=== PATIENT | female | born 1970 | race Caucasian/White ===

== ENCOUNTER 2019-10-24 14:33 | Outpatient (CLI) | payer OTHER, SELFPAY | END 2019-10-24 14:34 | disposition home or self-care (01) | LOC: LAB 14:36 | PROVIDERS: Family Provider Family Medicine; PCP Family Medicine; Visit Provider Otolaryngology | DX: E04.1 Nontoxic single thyroid nodule (principal) | CPT/HCPCS: 36415; 84443 ==

== ENCOUNTER → 2019-10-27 10:32 | Outpatient (BNVA) | payer OTHER, SELFPAY | PROVIDERS: Family Provider Family Medicine; PCP Family Medicine; Referring Provider Family Medicine; Visit Provider Otolaryngology | DX: R53.83 Other fatigue (principal); E03.9 Hypothyroidism, unspecified | CPT/HCPCS: 99024; 99214 ==

== ENCOUNTER 2019-12-05 07:45 | Outpatient (CLI) | payer OTHER, SELFPAY ==
[2019-12-05 08:24] LABS: Thyroid Stimulating Hormone 1.85 uIU/mL (0.27-4.20)
== END 2019-12-05 07:46 | disposition home or self-care (01) ==
LOC: LAB 07:48
PROVIDERS: Family Provider Family Medicine; PCP Family Medicine; Visit Provider Otolaryngology
DX: E03.9 Hypothyroidism, unspecified (principal)
CPT/HCPCS: 36415; 84443

== ENCOUNTER 2019-12-08 10:43 | Outpatient (CLI) | payer OTHER, SELFPAY ==
--- NOTE | 2019-12-08 10:50 | MM_ITS ---
WS: [id number] SCREENING DIGITAL MAMMOGRAM WITH CAD HISTORY: SCREENING COMPARISON: 10/26/2018, 12/09/2017 and 12/11/2016 Bilateral CC and MLO views submitted. Computer aided detection analyzed. Breast composition: The breasts are heterogeneously dense, which may obscure small masses. No suspici ous masses, microcalcifications or architectural distortion. MM/[id number] IMPRESSION: BI-RADS: 1-Negative FOLLOW UP: 1 Year Follow-up
== END 2019-12-08 10:44 | disposition home or self-care (01) ==
LOC: RADSHAW 10:43
PROVIDERS: Family Provider Family Medicine; PCP Family Medicine; Visit Provider Family Medicine
DX: Z12.31 Encounter for screening mammogram for malignant neoplasm of breast (principal); E04.1 Nontoxic single thyroid nodule; E03.9 Hypothyroidism, unspecified
CPT/HCPCS: 77067; 99212; 99214

== ENCOUNTER 2020-01-23 06:00 | Outpatient (CLI) | payer OTHER, SELFPAY ==
[2020-01-23 08:04] LABS: Thyroid Stimulating Hormone 1.45 uIU/mL (0.27-4.20)
== END 2020-01-23 06:01 | disposition home or self-care (01) ==
PROVIDERS: Family Provider Family Medicine; PCP Family Medicine; Visit Provider Otolaryngology
DX: E03.9 Hypothyroidism, unspecified (principal)
CPT/HCPCS: 36415; 84443

== ENCOUNTER 2020-02-16 10:17 | Outpatient (CLI) | payer OTHER, SELFPAY ==
--- NOTE | 2020-02-16 10:21 | XR_ITS ---
WS: [id number] LEFT HAND: 2 VIEW(S) TECHNIQUE: PA and lateral. HISTORY: Arthritis. COMPARISON: None available. No acute fracture or dislocation. Very minimal narrowing of the interphalangeal joints. No soft tissue abnormalities. No periarticular osteopenia. XR/XR hand LT 2V [id number] IMPRESSION: Minimal osteoarthritic changes at the interphalangeal joints.
--- NOTE | 2020-02-16 10:21 | XR_ITS ---
WS: [id number] RIGHT HIP HISTORY: Arthritis COMPARISON: None available. Right hip: No acute fracture or dislocation. Very mild sclerosis along the superior acetabulum and sm all osteophytes developing. No osteoblastic or osteolytic disease. Mild sclerosis RIGHT SI joint. No erosions or fusion. XR/XR hip RT 2-3V wo/w pel* [id number] IMPRESSION: 1. Mild RIGHT hip osteoarthritis. 2. Very mild RIGHT sacroiliitis.
--- NOTE | 2020-02-16 10:21 | XR_ITS ---
WS: [id number] RIGHT HAND: 2 VIEW(S) TECHNIQUE: PA and lateral. HISTORY: Arthritis. COMPARISON: None available. No acute fracture or dislocation. Very mild narrowing of the interphalangeal joint spaces. No periarticular osteopenia or erosions. Lyn y slight narrowing of the radiocarpal joint. Minimal narrowing of the first carpometacarpal joint. XR/XR hand RT 2V [id number] IMPRESSION: 1. Hypertrophic osteophytes most significant at the DIP joint seen on the late ral projection. Consistent with osteoarthritis. 2. Mild narrowing of the radiocarpal joint.
== END 2020-02-16 10:18 | disposition home or self-care (01) ==
LOC: RADWPI 10:19
PROVIDERS: Family Provider Family Medicine; PCP Family Medicine; Visit Provider Family Medicine
DX: M19.90 Unspecified osteoarthritis, unspecified site (principal); M16.11 Unilateral primary osteoarthritis, right hip; M46.1 Sacroiliitis, not elsewhere classified; M25.741 Osteophyte, right hand; M19.041 Primary osteoarthritis, right hand
CPT/HCPCS: 73120; 73502

== ENCOUNTER → 2020-04-30 11:40 | Outpatient (BNVA) | payer OTHER, SELFPAY | PROVIDERS: Family Provider Family Medicine; PCP Family Medicine; Visit Provider Internal Medicine Rheumatology | DX: R76.8 Other specified abnormal immunological findings in serum (principal); Z79.899 Other long term (current) drug therapy; M19.041 Primary osteoarthritis, right hand; M19.042 Primary osteoarthritis, left hand; M25.469 Effusion, unspecified knee; M79.7 Fibromyalgia; Z79.1 Long term (current) use of non-steroidal anti-inflammatories (NSAID) | CPT/HCPCS: 36415; 99214 ==

== ENCOUNTER 2020-04-30 13:48 | Outpatient (CLI) | payer OTHER, SELFPAY ==
--- NOTE | 2020-04-30 13:55 | XR_ITS ---
WS: [id number] THORACIC SPINE TECHNIQUE: 3 views of the thoracic spine CLINICAL INFORMATION: joint pain COMPARISON: None. FINDINGS: Mild thoracic curve convex left. No acute compression fractures. Disc space heights and vertebral bod y heights are well-maintained. Minimal disc space narrowing in the mid thoracic spine. Mild facet art hropathy in the lower thoracic spine. XR/XR thoracic spine 3V* [id number] IMPRESSION: 1. Mild thoracic curve convex left. No acute appearing compression fractures. 2. Minimal disc space narrowing in the mid thoracic spine. 3. No other significant findings.
--- NOTE | 2020-04-30 13:55 | XR_ITS ---
WS: [id number] LUMBAR SPINE TECHNIQUE: 3 views of the lumbar spine CLINICAL INFORMATION: joint pain COMPARISON: July 09, 2011 FINDINGS: Five [id number]-[id number] lumbar vertebral bodies. Mild lumbar curve convex right. Pelvic phleboliths. Dis c space narrowing worse at L4-5 slightly progressed since 2010. Moderate facet arthropathy L4-L5 and L5-S1. Disc space heights are otherwise well preserved. No compression fractures. No spondylolisthesis. Visu alized sacroiliac joints are normal. Normal visualized soft tissues. Partially visualized bowel gas p attern is normal. XR/XR lumbar spine 2-3V* [id number] IMPRESSION: 1. Mild lumbar curve convex right. No acute compression fractures. 2. Disc space narrowing worse L4-5 progressed since 2010. 3. Moderate facet arthropathy L4-L5 and L5-S1.
--- NOTE | 2020-04-30 13:55 | XR_ITS ---
WS: [id number] PELVIS TECHNIQUE: 1 view(s) of the pelvis CLINICAL INFORMATION: joint pain COMPARISON: Right hip February 16, 2020 FINDINGS: Visualized hips are normal in appearance. Normal acetabulum. Lower lumbar spine is normal. Inferior a nd superior pubic rami are normal. Normal iliopectineal line. Sacrum is normal in appearance. Sacroil iac joints appear normal today. No periarticular erosions. Pelvic phleboliths. XR/XR pelvis 1-2V* [id number] IMPRESSION: No acute pelvic findings
== END 2020-04-30 13:49 | disposition home or self-care (01) ==
LOC: RADWPI 13:50
PROVIDERS: Family Provider Family Medicine; PCP Family Medicine; Visit Provider Internal Medicine Rheumatology
DX: M25.50 Pain in unspecified joint (principal); M47.814 Spondylosis without myelopathy or radiculopathy, thoracic region; M47.816 Spondylosis without myelopathy or radiculopathy, lumbar region; M47.817 Spondylosis without myelopathy or radiculopathy, lumbosacral region
CPT/HCPCS: 72072; 72100; 72170; 80076; 81001; 82306; 82565; 85025; 85651; 86140

== ENCOUNTER → 2020-06-21 10:38 | Outpatient (BNVA) | payer OTHER, SELFPAY | PROVIDERS: Family Provider Family Medicine; PCP Family Medicine; Visit Provider Internal Medicine Rheumatology | DX: M79.7 Fibromyalgia (principal); R76.8 Other specified abnormal immunological findings in serum; Z79.899 Other long term (current) drug therapy; M54.5 Low back pain; G89.29 Other chronic pain; M19.071 Primary osteoarthritis, right ankle and foot; M19.072 Primary osteoarthritis, left ankle and foot; M18.0 Bilateral primary osteoarthritis of first carpometacarpal joints | CPT/HCPCS: 99214 ==

== ENCOUNTER 2020-07-10 10:05 | Outpatient (CLI) | payer OTHER, SELFPAY ==
--- NOTE | 2020-07-10 10:10 | MR_ITS ---
WS: [id number] MRI pelvis, noncontrast. HISTORY: Rule out sacroiliitis. Pain in lumbar and sacral area on the RIGHT. COMPARISON: CT 06/07/2014. Pelvis radiograph 04/30/2020. Multiplanar, multisequence imaging is performed of the SI joints. There is a focal erosion in the iliac side of the RIGHT SI joint measuring 7 mm. No increased signal associated with this erosion. Suggesting nonactive erosion. There is a very subtle area of approximat rojelio 4 mm of increased STIR signal in the sacral side of the SI joint. This is best seen on the rockwell l STIR sequence. There is also very minimal widening of the RIGHT SI joint as compared to the LEFT. N o definite erosions on the LEFT. There is no significant amount of marrow edema along the iliac side. No soft tissue abnormalities otherwise. Small follicle RIGHT ovary. Hip joints are normal. Mild degenerative disc disease and spondylosis at C4-5. MR/MR pelvis wo con* [id number] IMPRESSION: 1. An active 7 mm erosion RIGHT SI joint joint, iliac side. 2. Subtle marrow edema measuring 4 mm sacral side of the RIGHT SI joint suggest ing an early active erosion. 3. Very subtle widening of the RIGHT SI joint as compared to the LEFT. 4. These findings can be seen with early sacroiliitis associated with psoriatic or osteoarthritis.
== END 2020-07-10 10:06 | disposition home or self-care (01) ==
LOC: RADSHAW 10:07
PROVIDERS: PCP Family Medicine; Visit Provider Internal Medicine Rheumatology
DX: M46.1 Sacroiliitis, not elsewhere classified (principal); M54.5 Low back pain; M85.88 Other specified disorders of bone density and structure, other site; R60.0 Localized edema
CPT/HCPCS: 72195

== ENCOUNTER 2020-08-27 08:04 | Outpatient (CLI) | payer OTHER, SELFPAY ==
[2020-08-28 06:59] LABS: Thyroid Stimulating Hormone 0.93 uIU/mL (0.27-4.20)
== END 2020-08-27 08:05 | disposition home or self-care (01) ==
LOC: LAB 08:06
PROVIDERS: PCP Family Medicine; Visit Provider Family Medicine
DX: E04.1 Nontoxic single thyroid nodule (principal)
CPT/HCPCS: 84443

== ENCOUNTER 2020-08-27 08:07 | Outpatient (CLI) | payer OTHER, SELFPAY ==
[2020-08-27 08:51] LABS: Bacteria Urine TRACE /hpf; Bilirubin Urine 1+ (Negative); Blood Urine 2+ (Negative); Glucose Urine UA Norm (Normal); Ketones Urine Negative (Negative); Leukocyte Esterase Urine Negative (Negative); Mucus Urine 2+ /hpf; Nitrate Urine Negative (Negative); Protein Urine Neg (Negative); RBC Urine 0-4 /hpf (0-2); Squamous Epithelial Cell Urine 0-4 /hpf (0-5); Urine Appearance Clear (CLEAR); Urine Color Yellow (Yellow); Urobilinogen Urine Norm (Negative); WBC Urine RARE /hpf (0-5); pH Urine 5 (5-7)
[2020-08-27 08:52] LABS: Add Urine Culture? No
[2020-08-27 09:01] LABS: Urine Creatinine 224 mg/dL (28-217); Urine Protein Random 7 mg/dL
[2020-08-27 09:24] LABS: Basophils % 0.6 %; Eosinophils # 0.1 10^3/uL (0.0-0.8); Eosinophils % 1.6 %; Hematocrit 42.3 % (37.0-47.0); Hemoglobin 13.6 g/dL (11.5-15.3); Lymphocytes # 1.3 10^3/uL (0.8-4.8); Lymphocytes % 20.5 %; Mean Corpuscular HGB Conc 32.2 g/dL (30.0-36.0); Mean Corpuscular Hemoglobin 30.8 pg (28.0-34.0); Mean Corpuscular Volume 95.9 fL (81-99); Mean Platelet Volume 11.6 fL (7.4-10.4); Monocytes # 0.5 10^3/uL (0.2-0.9); Monocytes % 7.2 %; Neutrophils # 4.47 10^3/uL (1.8-7.7); Neutrophils % 69.8 %; Nucleated Red Blood Cells % 0 %; Platelet Count 215 10^3/cmm (130-400); Red Blood Count 4.41 10^6/uL (4.1-5.3); Red Cell Distribution Width 11.7 % (12.1-15.1); White Blood Count 6.4 10^3/uL (4.0-10.0)
[2020-08-27 09:44] LABS: Alanine Aminotransferase 15 U/L (0-33); Albumin Level 4.5 g/dL (3.5-5.2); Alkaline Phosphatase 73 IU/L (35-105); Aspartate Amino Transferase 18 U/L (0-32); C Reactive Protein 2.8 mg/L (0.0-4.9); Globulin 2.5 g/dL (1.3-4.6); Glomerular Filtration Rate 76.2 mL/min (90-130); Total Bilirubin 0.4 mg/dL (0.15-1.2)
[2020-08-27 10:41] LABS: Erythrocyte Sedimentation Rate 19 mm/hr (0-15)
[2020-08-27 11:20] LABS: Complement C3 132 mg/dL (90-180)
[2020-08-30 16:58] LABS: HLA-B27 NEGATIVE (NEGATIVE)
== END 2020-08-27 08:08 | disposition home or self-care (01) ==
LOC: LAB 08:08
PROVIDERS: PCP Family Medicine; Visit Provider Internal Medicine Rheumatology
DX: Z79.899 Other long term (current) drug therapy (principal); R76.8 Other specified abnormal immunological findings in serum; M46.1 Sacroiliitis, not elsewhere classified
CPT/HCPCS: 36415; 80076; 81001; 82565; 82570; 84156; 85025; 85651; 86140; 86160; 86812

== ENCOUNTER → 2020-10-22 13:06 | Outpatient (BNVA) | payer OTHER, SELFPAY | PROVIDERS: PCP Family Medicine; Visit Provider Internal Medicine Rheumatology | DX: R76.8 Other specified abnormal immunological findings in serum (principal); M45.9 Ankylosing spondylitis of unspecified sites in spine; M46.1 Sacroiliitis, not elsewhere classified; Z79.899 Other long term (current) drug therapy; M19.90 Unspecified osteoarthritis, unspecified site; M79.7 Fibromyalgia | CPT/HCPCS: 99214 ==

== ENCOUNTER 2020-11-27 06:35 | Outpatient (CLI) | payer OTHER, SELFPAY ==
[2020-11-27 07:40] LABS: Basophils % 0.8 %; Eosinophils # 0.2 10^3/uL (0.0-0.8); Hematocrit 43.2 % (37.0-47.0); Hemoglobin 13.5 g/dL (11.5-15.3); Lymphocytes # 1.3 10^3/uL (0.8-4.8); Lymphocytes % 26.5 %; Mean Corpuscular HGB Conc 31.3 g/dL (30.0-36.0); Mean Corpuscular Hemoglobin 31.3 pg (28.0-34.0); Mean Corpuscular Volume 100.2 fL (81-99); Mean Platelet Volume 11.6 fL (7.4-10.4); Monocytes # 0.4 10^3/uL (0.2-0.9); Neutrophils # 3.13 10^3/uL (1.8-7.7); Neutrophils % 62.5 %; Nucleated Red Blood Cells % 0 %; Platelet Count 188 10^3/cmm (130-400); Red Blood Count 4.31 10^6/uL (4.1-5.3); Red Cell Distribution Width 12.3 % (12.1-15.1)
[2020-11-27 07:50] LABS: Alanine Aminotransferase 16 U/L (0-33); Albumin Level 4.1 g/dL (3.5-5.2); Alkaline Phosphatase 65 IU/L (35-105); Aspartate Amino Transferase 19 U/L (0-32); C Reactive Protein 1.8 mg/L (0.0-4.9); Globulin 2.6 g/dL (1.3-4.6); Glomerular Filtration Rate 76.2 mL/min (90-130); Total Bilirubin 0.3 mg/dL (0.15-1.2); Total Protein 6.7 g/dL (6.6-8.7)
[2020-11-27 08:27] LABS: Erythrocyte Sedimentation Rate 11 mm/hr (0-15)
== END 2020-11-27 06:36 | disposition home or self-care (01) ==
PROVIDERS: PCP Family Medicine; Visit Provider Internal Medicine Rheumatology
DX: Z79.899 Other long term (current) drug therapy (principal)
CPT/HCPCS: 36415; 80076; 82565; 85025; 85651; 86140

== ENCOUNTER 2021-01-14 09:17 | Outpatient (CLI) | payer OTHER, SELFPAY ==
--- NOTE | 2021-01-14 09:22 | MM_ITS ---
WS: [id number] BILATERAL SCREENING DIGITAL MAMMOGRAM WITH CAD HISTORY: SCREENING COMPARISON: 12/08/2019 and 10/26/2018 and 12/09/2017 Bilateral CC and MLO views submitted. Computer aided detection analyzed. Breast composition: The breasts are heterogeneously dense, which may obscure small masses. No suspici ous masses, microcalcifications or architectural distortion. MM/[id number] IMPRESSION: BI-RADS: 1-Negative FOLLOW UP: 1 Year Follow-up
== END 2021-01-14 09:18 | disposition home or self-care (01) ==
PROVIDERS: PCP Family Medicine; Visit Provider Family Medicine
DX: Z12.31 Encounter for screening mammogram for malignant neoplasm of breast (principal)
CPT/HCPCS: 77067

== ENCOUNTER → 2021-02-11 13:38 | Outpatient (BNVA) | payer OTHER, SELFPAY | PROVIDERS: PCP Family Medicine; Visit Provider Internal Medicine Rheumatology | DX: M45.9 Ankylosing spondylitis of unspecified sites in spine (principal); R76.8 Other specified abnormal immunological findings in serum; M19.90 Unspecified osteoarthritis, unspecified site; Z79.899 Other long term (current) drug therapy; M46.1 Sacroiliitis, not elsewhere classified | CPT/HCPCS: 99214 ==

== ENCOUNTER → 2021-06-18 10:11 | Outpatient (BNVA) | payer SELFPAY | PROVIDERS: PCP Family Medicine; Visit Provider Family Medicine Adult Medicine | DX: E03.9 Hypothyroidism, unspecified (principal) ==